=== PATIENT | male | born 1990 | race Caucasian/White ===

== ENCOUNTER 2018-03-10 19:54 | Emergency (ER) | payer SELFPAY ==
[~2018-03-10] VITALS: Ht 172.7 cm; Wt 71.2 kg
[2018-03-10 20:03] VITALS: BP 132/85
--- NOTE | 2018-03-10 20:53 | NUR ---
PT TO XRAY VIA STRETCHER.
[2018-03-10] MEDS ORDERED: KETOROLAC TROMETHAMINE INJ 60 MG/2 ML VIAL IM ONE ×2 (21:00→21:16)
[2018-03-10] MEDS ORDERED: DIAZEPAM 10 MG TABLET PO ONE (21:00)
[2018-03-10] MEDS ORDERED: DIAZEPAM 10 MG TABLET ONE (21:17)
== END 2018-03-10 21:34 | disposition home or self-care (01) ==
LOC: ER 19:56
DX: M54.5 Low back pain (principal); D86.9 Sarcoidosis, unspecified
CPT/HCPCS: 72100; 96372; 99284; A4606; J1885; Z7610

== ENCOUNTER 2018-04-14 23:52 | Emergency (ER) | payer SELFPAY ==
[~2018-04-14] VITALS: Ht 172.7 cm; Wt 72.6 kg
[2018-04-15 00:25] VITALS: BP 121/80
[2018-04-15] MEDS ORDERED: diphenhydrAMINE HCL 50 MG/ML VIAL ONE (01:05)
== END 2018-04-15 01:36 | disposition home or self-care (01) ==
LOC: ER 23:55
DX: M62.830 Muscle spasm of back (principal); Z98.890 Other specified postprocedural states
CPT/HCPCS: 99283; A4606; J1200; Z7610